=== PATIENT | male | born 1960 ===

== ENCOUNTER 2025-05-18 08:41 | Outpatient (CLI) | payer OTHER ==
[~2025-05-18 08:41] MED LIST: METHOCARBAMOL500 MG PO
== END 2025-05-18 08:50 | disposition home or self-care (01) ==
LOC: TOM 08:41
PROVIDERS: ATTEND Internal Medicine
DX: R06.2 Wheezing (principal); F17.210 Nicotine dependence, cigarettes, uncomplicated
CPT/HCPCS: 71260; Q9965